=== PATIENT | male | born 1950 | race Caucasian/White ===

== ENCOUNTER → 2017-12-23 10:21 | Outpatient (CLI) | payer MEDICARE, SELFPAY ==
[2017-12-23 14:29] LABS: Basophils % 0.6 % (0.1-2.0); Eosinophils # 0.2 K/mm3 (0.0-0.4); Eosinophils % 2.5 % (0.1-12.0); Hematocrit 46.6 % (42.0-52.0); Hemoglobin 15.8 g/dL (14.1-18.0); Lymphocytes # 1.9 K/mm3 (0.7-4.5); Lymphocytes % 31.2 K/mm3 (10-50); Mean Corpuscular HGB Conc 33.9 g/dL (31.8-35.4); Mean Corpuscular Hemoglobin 29.3 pg (27.0-31.2); Mean Corpuscular Volume 86.5 fl (80-94); Mean Platelet Volume 8.1 fl (7.4-10.4); Monocytes # 0.6 K/mm3 (0.1-1.0); Monocytes % 8.9 % (1.7-9.3); Neutrophils # 3.5 K/mm3 (1.8-7.8); Neutrophils % 56.9 % (37.0-80.0); Platelet Count 188 K/mm3 (142-424); Red Blood Count 5.39 M/mm3 (4.60-6.20); Red Cell Distribution Width 13.1 % (11.5-17.5); White Blood Count 6.2 K/mm3 (4.8-10.8)
[2017-12-23 15:07] LABS: Alanine Aminotransferase 83 U/L (12-78); Albumin/Globulin Ratio 1.4 (1.1-1.8); Alkaline Phosphatase 81 U/L (46-116); Aspartate Amino Transferase 45 U/L (15-37); Bilirubin,Total 0.4 mg/dL (0.2-1.0); Blood Urea Nitrogen 15 mg/dL (7-18); Calcium 9.2 mg/dL (8.5-10.1); Carbon Dioxide 30 mmol/L (21.0-32.0); Chloride 104 mmol/L (98-107); Creatinine,Serum 1.03 mg/dL (0.70-1.30); Estimated Glomerular Filt Rate 72 ml/min (>60); GFR (African American) 88 ML/MIN (>60); Globulin 2.8 gm/dl (1.3-3.2); Glucose 160 mg/dL (74-106); Sodium 142 mmol/L (136-145); Thyroid Stimulating Hormone 3.13 uIU/ml (0.358-3.740); Total Protein,Serum 6.8 gm/dL (6.4-8.2)
[2017-12-24 20:14] LABS: Vitamin B12 856 pg/mL (232-1245)
== END ==
PROVIDERS: PCP Nurse Practitioner Family; Visit Provider Nurse Practitioner Family
DX: R53.83 Other fatigue (principal)
CPT/HCPCS: 36415; 80053; 82607; 82652; 84443; 85025

== ENCOUNTER → 2018-01-09 08:46 | Outpatient (CLI) | payer MEDICARE, SELFPAY ==
--- NOTE | 2018-01-09 08:49 | US_ITS ---
US abdomen limited: HISTORY: ITS.REASON: ELEVATED LIVER ENZYMES ORDERING PHYSICIAN: Tyson Storey MD PATIENT AGE: 67 years FINDINGS: Study is technically limited due to patient body habitus. PANCREAS: Poorly demonstrated LIVER: Increased echogenicity of the liver with poor through transmission of sound consistent with a liver. RIGHT KIDNEY: Unremarkable. Normal size and echogenicity. No hydronephrosis GALLBLADDER: No gallstones, gallbladder wall thickening, pericholecystic fluid, or biliary dilatation. IMPRESSION: Somewhat limited exam, no acute finding. No evidence of cholelithiasis. Fatty liver
== END ==
PROVIDERS: PCP Nurse Practitioner Family; Visit Provider Internal Medicine Adolescent Medicine
DX: R74.8 Abnormal levels of other serum enzymes (principal)
CPT/HCPCS: 76705

== ENCOUNTER → 2018-12-12 12:41 | Outpatient (CLI) | payer MEDICARE, SELFPAY | PROVIDERS: PCP Internal Medicine Adolescent Medicine; Visit Provider Internal Medicine Adolescent Medicine | DX: G47.33 Obstructive sleep apnea (adult) (pediatric) (principal); I10 Essential (primary) hypertension; R51 Headache | CPT/HCPCS: G0399 ==

== ENCOUNTER 2019-03-25 12:54 | Observation (INO) ==
--- NOTE | 2019-03-25 13:20 | Emergency Department Note ---
ED Disposition Clinical Impression: Vomiting, Hx of bladder cancer, Pyelonephritis of left kidney Disposition: Still a Patient Condition on Discharge: Fair - Critical Care Critical Care Time: No Attestation: On 03/25/19, the high probability of a clinically significant, sudden or life threatening deterioration of the following system(s) required my full and direct attention, intervention and personal management. The time I documented below is in addition to time spent performing reported procedures but includes the following listed in this critical care notation. Medical Decision Making - Alfredo Inquiry Pt receiving controlled substance: No Alfredo was queried for this patient: No Vital Signs: 03/25/19 13:25 03/25/19 14:55 Temperature 100.4 F H Temperature Source Oral Pulse Rate [Left Radial] 114 H 113 H Respiratory Rate 20 Blood Pressure [Right Arm] 128/47 L 126/98 H Blood Pressure Mean [Right Arm] 74 107 Blood Pressure Source [Right Arm] Automatic Cuff Blood Pressure Position [Right Arm] Sitting 02 Sat by Pulse Oximetry 95 92 L Oxygen Delivery Method Room Air - Lab Data Lab Results 03/25/19 13:16: WBC 15.3 H, RBC 5.15, Hgb 14.1, Hct 42.0, MCV 81.4, MCH 27.4, MCHC 33.7, RDW 13.6, Plt Count 210, MPV 7.1 L, Neut % (Auto) 78.6, Lymph % (Auto) 15.1, [place] % (Auto) 5.5, Eos % (Auto) 0.5, Baso % (Auto) 0.3, Neut # (Auto) 12.0 H, Lymph # (Auto) 2.3, [place] # (Auto) 0.8, Eos # (Auto) 0.1, Baso # (Auto) 0.0, Total Counted 100, Neutrophils % (Manual) 79 H, Band Neutrophils % 1.0, Lymphocytes % (Manual) 7 L, Atypical Lymphs % 3.0, Monocytes % (Manual) 10 H, Platelet Estimate Normal, RBC Morphology Normal 03/25/19 13:16: Sodium 138, Potassium 3.7, Chloride 100, Carbon Dioxide 28, Anion Gap 13.7, BUN 16, Creatinine 1.26, Estimated Creat Clear 87, Estimated GFR 57 L, Est GFR ( Amer) 69, Glucose 177 H, Calcium 9.4, Total Bilirubin 0.8, AST 11 L, ALT 27, Alkaline Phosphatase 102, Total Protein 7.2, Albumin 3.7, Globulin 3.5 H, Albumin/Globulin Ratio 1.1, Lipase 102 03/25/19 13:31: Urine Color Yellow, Urine Appearance Sl cloudy, Urine pH 7.0, Ur Specific [place] 1.020, Urine Protein 1+, Urine Glucose (UA) Trace, Urine Ketones Negative, Urine Blood 2+, Urine Nitrate Negative, Urine Bilirubin Negative, Urine Urobilinogen 1.0, Ur Leukocyte Esterase 1+ A, Urine RBC 5-10, Urine WBC 10-20, Ur Squamous Epith Cells Occasional, Urine Bacteria 2+ 03/25/19 14:30: Lactate 2.3 H Result diagrams: 03/25/19 13:16 03/25/19 13:16 Orders (Tests/Meds): ED MEDICATIONS Generic Name Dose Route Start Last Admin Trade Name Sergioq PRN Reason Stop Dose Admin Levofloxacin/Dextrose 750 mg in 150 mls @ 100 mls/hr 03/25/19 14:00 03/25/19 14:52 Levofloxacin 750mg/150ml Premix IV 04/08/19 13:59 100 mls/hr Q24H WILTON Administration Protocol Sodium Chloride 10 ml 03/25/19 13:16 Saline Flush 10ml Syringe IV 04/24/19 13:15 NEEDED PRN Maintain IV Site Discontinued Medications Generic Name Dose Route Start Last Admin Trade Name Dillon PRN Reason Stop Dose Admin Acetaminophen 1,000 mg 03/25/19 13:34 03/25/19 14:00 Tylenol 500mg Tablet PO 03/25/19 13:35 1,000 mg ONCE ONE Administration Famotidine 20 mg 03/25/19 13:16 03/25/19 13:39 Pepcid 20mg/2ml Vial IV 03/25/19 13:17 20 mg ONCE ONE Administration Ioversol 75 ml 03/25/19 14:37 03/25/19 14:38 Rad-Optiray 350 100ml Vial IV 03/25/19 14:38 75 ml ONCE ONE Administration Protocol Morphine Sulfate 2 mg 03/25/19 13:16 03/25/19 14:52 Morphine 2mg/Ml Syringe IV 03/25/19 13:17 2 mg ONCE ONE Administration Ondansetron HCl 4 mg 03/25/19 13:16 03/25/19 13:33 Zofran 4mg/2ml Vial IV 03/25/19 13:17 4 mg ONCE ONE Administration Sodium Chloride 8 ml 03/25/19 13:16 03/25/19 13:33 Saline Flush 10ml Syringe IV 03/25/19 13:17 8 ml ONCE ONE Administration Sodium Chloride 10 ml 03/25/19 14:37 03/25/19 14:38 Rad-Saline Flush 10ml Syringe IV 03/25/19 14:38 10 ml ONCE ONE Administration ORDERS Category Date Time Status Blood Culture Stat Micro 03/25/19 14:30 Received Urine Culture Stat Micro 03/25/19 13:31 Received - CT Data CT Scan: Abdomen, Pelvis Time Received: 15:[address] Reviewed: Yes: I discussed the CT results w/the radiologist Preliminary Findings: Abnormal Medical Decision Narrative: The patient received IV fluids anti-medics with improvement of his symptoms his white count was elevated urine was positive for leukocyte esterase and nitrates. I discussed with Dr. Storey with his tachycardia and elevated temperature he will be admitted. The patient was agreeable for admission. Abdominal Pain HPI - General Stated Complaint: Possible Kidney infection, cold and fever Time Seen by Provider: 03/25/19 13:16 - History of Present Illness HPI narrative: 68 years old white male with 10-year history of bladder cancer had multiple biopsies and BCG injections by dr. Castellon, has no history of nephrolithiasis. Yesterday, he developed intermittent left-sided dull aching pain rated 7/10 without radiation associated with dysuria lasting for 30 minutes x 2 episodes. Today he woke up at 730 had breakfast and 90 minutes later at 9:00 he developed the same pain that was became continuous until he arrived to the ED feeling nauseous and vomited once. Denies having fever chills body ache hematemesis co ffee-ground emesis melanotic stool or bleeding per rectum. He admits for having dysuria but denies having hematuria or flank pain. He denies having chest pain palpitation shortness of air. MD complaint: abdominal pain Onset (ago): hour(s) Consistency: constant Severity: moderate Severity scale (1-10): 7 Quality: aching, dull Radiation: none Relieving factors: nothing Exacerbating factors: nothing Associated symptoms: nausea, vomiting - Related Data Allergies Allergy/AdvReac Type Severity Reaction Status Date / Time No Known Allergies Allergy Verified 03/25/19 13:31 [facility] History - Hepatitis A Screen Attestation statement:: This patient has been screened for Hepatitis A risk factors. I have reviewed the patient's past medical history: Yes ROS Obtained: Yes All systems reviewed & no additional complaints Physical Exam - General General appearance: alert, in no apparent distress - Head Head exam: atraumatic, normocephalic, normal inspection - Eye Eye exam: Present: normal appearance, PERRL, EOMI. Absent: scleral icterus - ENT ENT exam: Present: normal exam, normal oropharynx, mucous membranes moist, TM's normal bilaterally, normal external ear exam - Neck Neck exam: Present: normal inspection, full ROM, trachea midline. Absent: tenderness, meningismus, lymphadenopathy - Chest Chest inspection: Present: normal inspection, symmetric chest wall rise. Absent: tenderness - Respiratory Respiratory exam: Present: normal lung sounds bilaterally. Absent: respiratory distress - Cardiovascular Cardiovascular exam: Present: regular rate, normal rhythm, normal heart sounds. Absent: JVD - Abdominal Exam Abdominal exam: Present: soft, tenderness, normal bowel sounds, other (Abdomen is soft with focal left loin pain tenderness, no rebound tenderness no cross tenderness no rigidity no pulsating masses equal bilateral femoral pulse.). Absent: distention, guarding, rebound, rigidity, Barnes's sign, tenderness at McBurney's Point - exam: Present: normal inspection, normal testicular lie. Absent: testicular tenderness, urethral discharge, scrotal swelling - Extremities Exam Extremities exam: Present: normal inspection, full ROM, normal capillary refill. Absent: calf tenderness - Back Exam Back exam: Present: normal inspection. Absent: tenderness - Neurological Exam Neurological exam: Present: alert, oriented X3, CN II-XII intact, motor sensory deficit, reflexes normal - Psychiatric Psychiatric exam: Present: normal affect, normal mood - Skin Skin exam: Present: warm, dry, intact, normal color - Lymphatic Lymphatic Findings: no adenopathy
[2019-03-25 13:25] LABS: Basophils % 0.3 % (0.1-2.0); Eosinophils # 0.1 K/mm3 (0.0-0.4); Eosinophils % 0.5 % (0.1-12.0); Hemoglobin 14.1 g/dL (14.1-18.0); Lymphocytes # 2.3 K/mm3 (0.7-4.5); Lymphocytes % 15.1 % (10-50); Mean Corpuscular HGB Conc 33.7 g/dL (31.8-35.4); Mean Corpuscular Volume 81.4 fl (80-94); Mean Platelet Volume 7.1 fl (7.4-10.4); Monocytes # 0.8 K/mm3 (0.1-1.0); Monocytes % 5.5 % (1.7-9.3); Neutrophils % 78.6 % (37.0-80.0); Platelet Count 210 K/mm3 (142-424); Red Blood Count 5.15 M/mm3 (4.60-6.20); Red Cell Distribution Width 13.6 % (11.5-17.5); White Blood Count 15.3 K/mm3 (4.8-10.8)
[2019-03-25 13:35] LABS: Microscopic, Urine URINE MICROSCOPIC (MICROSCOPIC)
[2019-03-25 13:36] LABS: Appearance,Urine SL CLOUDY (Clear); Bilirubin,Urine Negative (Negative); Blood, Urine 2+ (Negative); Color,Urine YELLOW (Yellow); Glucose,Urine (UA) TRACE (Negative); Ketones,Urine Negative (Negative); Leukocyte Esterase,Urine 1+ (Negative); Protein,Urine 1+ (Negative)
[2019-03-25 13:40] LABS: Albumin Level 3.7 gm/dL (3.4-5.0); Albumin/Globulin Ratio 1.1 (1.1-1.8); Anion Gap 13.7 mEq/L (5-15); Bilirubin,Total 0.8 mg/dL (0.2-1.0); Calcium 9.4 mg/dL (8.5-10.1); Globulin 3.5 gm/dl (1.3-3.2); Total Protein,Serum 7.2 gm/dL (6.4-8.2)
[2019-03-25 13:41] LABS: Lymphocytes % 7 % (10-50); Monocytes % 10 % (2-9); Neutrophils % 79 % (42-76); RBC Morphology Normal; Total Cells Counted 100
[2019-03-25 13:44] LABS: Bacteria,Urine 2+ /lpf; Squamous Epithelial Cell,Urine Occasional #/hpf (0-5)
--- NOTE | 2019-03-25 14:42 | Pharmacy Consult Notes ---
[facility] Pharmacy VTE Monitoring - Patient Demographics Admission date: 03/25/19 Report Date: 03/25/19 Time: 14:42 Allergies/Adverse Reactions: Patient Allergies No Known Allergies Allergy (Verified 03/25/19 13:31) Height: 1.73 m Weight: 106.141 kg Patient Problems: Current Active Problems (Updated 03/25/19 @ 13:22 by La Elliott MD) Vomiting (Acute) Hx of bladder cancer (Acute) - VTE Risk Labs: VTE Related Lab Results Hgb 14.1 g/dL (14.1-18.0) 03/25/19 13:16 Hct 42.0 % (42.0-52.0) 03/25/19 13:16 Plt Count 210 K/mm3 (142-424) 03/25/19 13:16 BUN 16 mg/dL (7-18) 03/25/19 13:16 Creatinine 1.26 mg/dL (0.70-1.30) 03/25/19 13:16 Estimated Creat Clear 87 mL/min (50-200) 03/25/19 13:16 - Prophylaxis VTE Prophylaxis Ordered?: Yes Types of VTE Prophylaxis: TEDS Knee High Location of Applied Device: Bilateral Lower Extremeties - VTE Diagnosis Confirmed Treatment or plan recommended: Continue Current Treatment
[2019-03-26 05:58] LABS: Basophils % 0.2 % (0.1-2.0); Eosinophils # 0.1 K/mm3 (0.0-0.4); Eosinophils % 0.7 % (0.1-12.0); Hematocrit 36.1 % (42.0-52.0); Lymphocytes # 2.1 K/mm3 (0.7-4.5); Lymphocytes % 14.5 % (10-50); Mean Corpuscular Volume 81.9 fl (80-94); Mean Platelet Volume 7.1 fl (7.4-10.4); Monocytes % 7.2 % (1.7-9.3); Neutrophils # 11.1 K/mm3 (1.8-7.8); Neutrophils % 77.3 % (37.0-80.0); Platelet Count 164 K/mm3 (142-424); Red Blood Count 4.41 M/mm3 (4.60-6.20); Red Cell Distribution Width 13.6 % (11.5-17.5); White Blood Count 14.3 K/mm3 (4.8-10.8)
[2019-03-26 06:01] LABS: Hemoglobin 11.9 g/dL (14.1-18.0)
[2019-03-26 06:07] LABS: Calcium 8.5 mg/dL (8.5-10.1)
--- NOTE | 2019-03-26 08:35 | H&P/Discharge Summary ---
General - General Admission date:: 03/25/19 Discharge date: 03/26/19 *Admission Date: 03/25/19 *Chief complaint: Hematuria/dysuria *History of present illness: 68-year-old white male with history of bladder cancer, currently in remission, treated by Dr. Castellon in [facility], who came to the emergency department with chief complaint of hematuria and some dysuria. Found to have a low-grade fever, temperature elevation and heart rate elevation was admitted to hospital for IV antibiotics and fluids. [facility] History I have reviewed the patient's past medical history: Yes Medical History: Reports:: Cancer (bladder cancer), Hyperlipidemia, Hypertension Denies:: Diabetes Mellitus Type 1, Diabetes Mellitus Type 2, MRSA *Have you ever received a pneumonia vaccine?: No *Have you received a flu vaccine this season?: Yes Other Surgeries: Yes: Cholecystectomy Amputation: No Fractures: No - *Social History Educational Level: Attended High School Smoking Status: Former smoker Alcohol Intake: never *Occupational Status:: retired Housing: house Household Members: family *Travel in the last 8 weeks: None - Psychiatric History Expresses thoughts of harming self/others: None Suicide Plan Description: No Plan Family Hx:: Hyperlipidemia, Hypertension Review of Systems - Review of Systems Review of systems:: pertinent systems reviewed and negative unless documented below - Constitutional Reports fatigue, Reports fever(s), Denies anorexia, Denies body ache(s) - Eyes Denies blind spots, Denies blurry vision - ENT Denies abnormal hearing, Denies bleeding gums, Denies dizziness - *Cardiovascular Denies chest pain, Denies chest pain at rest, Denies shortness of breath - *Respiratory Denies change in phlegm color, Denies chest congestion, Denies shortness of breath with activity - *Gastrointestinal Reports abdominal pain, Denies heartburn, Denies difficulty swallowing, Denies incontinent of stools, Denies heartburn - *Genitourinary Reports painful urination, Reports blood in urine, Reports frequent nighttime urination, Denies difficulty urinating, Denies erectile dysfunction - *Musculoskeletal Denies abnormal walking - Integumentary/Breasts Denies acne, Denies hair loss - *Neurologic Denies abnormal walking Exam Vital signs and Labs for Last 24 Hours: Temp Pulse Resp BP Pulse Ox 98.5 F 80 18 119/59 L 94 L 03/26/19 07:48 03/26/19 07:48 03/26/19 07:48 03/26/19 07:48 03/26/19 07:48 Laboratory Results - last 24 hr 03/25/19 13:16: WBC 15.3 H, RBC 5.15, Hgb 14.1, Hct 42.0, MCV 81.4, MCH 27.4, MCHC 33.7, RDW 13.6, Plt Count 210, MPV 7.1 L, Neut % (Auto) 78.6, Lymph % (Auto) 15.1, [place] % (Auto) 5.5, Eos % (Auto) 0.5, Baso % (Auto) 0.3, Neut # (Auto) 12.0 H, Lymph # (Auto) 2.3, [place] # (Auto) 0.8, Eos # (Auto) 0.1, Baso # (Auto) 0.0, Total Counted 100, Neutrophils % (Manual) 79 H, Band Neutrophils % 1.0, Lymphocytes % (Manual) 7 L, Atypical Lymphs % 3.0, Monocytes % (Manual) 10 H, Platelet Estimate Normal, RBC Morphology Normal 03/25/19 13:16: Sodium 138, Potassium 3.7, Chloride 100, Carbon Dioxide 28, Anion Gap 13.7, BUN 16, Creatinine 1.26, Estimated Creat Clear 87, Estimated GFR 57 L, Est GFR ( Amer) 69, Glucose 177 H, Calcium 9.4, Total Bilirubin 0.8, AST 11 L, ALT 27, Alkaline Phosphatase 102, Total Protein 7.2, Albumin 3.7, Globulin 3.5 H, Albumin/Globulin Ratio 1.1, Lipase 102 03/25/19 13:31: Urine Color Yellow, Urine Appearance Sl cloudy, Urine pH 7.0, Ur Specific [place] 1.020, Urine Protein 1+, Urine Glucose (UA) Trace, Urine Ketones Negative, Urine Blood 2+, Urine Nitrate Negative, Urine Bilirubin Negative, Urine Urobilinogen 1.0, Ur Leukocyte Esterase 1+ A, Urine RBC 5-10, Urine WBC 10-20, Ur Squamous Epith Cells Occasional, Urine Bacteria 2+ 03/25/19 14:30: Lactate 2.3 H 03/25/19 18:50: Lactate 1.7 03/26/19 05:35: WBC 14.3 H, RBC 4.41 L, Hgb 11.9 L D, Hct 36.1 L, MCV 81.9, MCH 27.0, MCHC 33.0, RDW 13.6, Plt Count 164, MPV 7.1 L, Neut % (Auto) 77.3, Lymph % (Auto) 14.5, [place] % (Auto) 7.2, Eos % (Auto) 0.7, Baso % (Auto) 0.2, Neut # (Auto) 11.1 H, Lymph # (Auto) 2.1, [place] # (Auto) 1.0, Eos # (Auto) 0.1, Baso # (Auto) 0.0 03/26/19 05:35: Sodium 142, Potassium 4.0, Chloride 104, Carbon Dioxide 30, Anion Gap 12.0, BUN 13, Creatinine 1.16, Estimated Creat Clear 91, Estimated GFR 63, Est GFR ( Amer) 76, Glucose 136 H D, Calcium 8.5 I & O for Last 24 hours: Intake & Output 03/23/19 03/24/19 03/25/19 03/26/19 11:59 11:59 11:59 11:59 Intake Total 2119 Balance 2119 Weight 227 lb 5 oz Narrative: Patient after overnight treatment is alert, pleasant. Feels much better. Abdomen soft and nontender. Lungs are clear, heart rate regular. No neurologic deficits. No perfusion deficits. Hospital Course Hospital Course: Patient was admitted overnight. This morning he feels much better, wishes to be discharged home. We will discharge home on p.o. levofloxacin. I will see him in short-term follow-up on with repeat urinalysis. If still with hematuria we will schedule reimaging and urology evaluation. Results Labs on day of discharge: Labs from last 24 hours 03/26/19 03/26/19 03/25/19 05:35 05:35 18:50 WBC 14.3 H RBC 4.41 L Hgb 11.9 L D Hct 36.1 L MCV 81.9 MCH 27.0 MCHC 33.0 RDW 13.6 Plt Count 164 MPV 7.1 L Neut % (Auto) 77.3 Lymph % (Auto) 14.5 [place] % (Auto) 7.2 Eos % (Auto) 0.7 Baso % (Auto) 0.2 Neut # (Auto) 11.1 H Lymph # (Auto) 2.1 [place] # (Auto) 1.0 Eos # (Auto) 0.1 Baso # (Auto) 0.0 Total Counted Neutrophils % (Manual) Band Neutrophils % Lymphocytes % (Manual) Atypical Lymphs % Monocytes % (Manual) Platelet Estimate RBC Morphology Sodium 142 Potassium 4.0 Chloride 104 Carbon Dioxide 30 Anion Gap 12.0 BUN 13 Creatinine 1.16 Estimated Creat Clear 91 Estimated GFR 63 Est GFR ( Amer) 76 Glucose 136 H D Lactate 1.7 Calcium 8.5 Total Bilirubin AST ALT Alkaline Phosphatase Total Protein Albumin Globulin Albumin/Globulin Ratio Lipase Urine Color Urine Appearance Urine pH Ur Specific [place] Urine Protein Urine Glucose (UA) Urine Ketones Urine Blood Urine Nitrate Urine Bilirubin Urine Urobilinogen Ur Leukocyte Esterase Urine RBC Urine WBC Ur Squamous Epith Cells Urine Bacteria 03/25/19 03/25/19 03/25/19 14:30 13:31 13:16 WBC RBC Hgb Hct MCV MCH MCHC RDW Plt Count MPV Neut % (Auto) Lymph % (Auto) [place] % (Auto) Eos % (Auto) Baso % (Auto) Neut # (Auto) Lymph # (Auto) [place] # (Auto) Eos # (Auto) Baso # (Auto) Total Counted Neutrophils % (Manual) Band Neutrophils % Lymphocytes % (Manual) Atypical Lymphs % Monocytes % (Manual) Platelet Estimate RBC Morphology Sodium 138 Potassium 3.7 Chloride 100 Carbon Dioxide 28 Anion Gap 13.7 BUN 16 Creatinine 1.26 Estimated Creat Clear 87 Estimated GFR 57 L Est GFR ( Amer) 69 Glucose 177 H Lactate 2.3 H Calcium 9.4 Total Bilirubin 0.8 AST 11 L ALT 27 Alkaline Phosphatase 102 Total Protein 7.2 Albumin 3.7 Globulin 3.5 H Albumin/Globulin Ratio 1.1 Lipase 102 Urine Color Yellow Urine Appearance Sl cloudy Urine pH 7.0 Ur Specific [place] 1.020 Urine Protein 1+ Urine Glucose (UA) Trace Urine Ketones Negative Urine Blood 2+ Urine Nitrate Negative Urine Bilirubin Negative Urine Urobilinogen 1.0 Ur Leukocyte Esterase 1+ A Urine RBC 5-10 Urine WBC 10-20 Ur Squamous Epith Cells Occasional Urine Bacteria 2+ 03/25/19 13:16 WBC 15.3 H RBC 5.15 Hgb 14.1 Hct 42.0 MCV 81.4 MCH 27.4 MCHC 33.7 RDW 13.6 Plt Count 210 MPV 7.1 L Neut % (Auto) 78.6 Lymph % (Auto) 15.1 [place] % (Auto) 5.5 Eos % (Auto) 0.5 Baso % (Auto) 0.3 Neut # (Auto) 12.0 H Lymph # (Auto) 2.3 [place] # (Auto) 0.8 Eos # (Auto) 0.1 Baso # (Auto) 0.0 Total Counted 100 Neutrophils % (Manual) 79 H Band Neutrophils % 1.0 Lymphocytes % (Manual) 7 L Atypical Lymphs % 3.0 Monocytes % (Manual) 10 H Platelet Estimate Normal RBC Morphology Normal Sodium Potassium Chloride Carbon Dioxide Anion Gap BUN Creatinine Estimated Creat Clear Estimated GFR Est GFR ( Amer) Glucose Lactate Calcium Total Bilirubin AST ALT Alkaline Phosphatase Total Protein Albumin Globulin Albumin/Globulin Ratio Lipase Urine Color Urine Appearance Urine pH Ur Specific [place] Urine Protein Urine Glucose (UA) Urine Ketones Urine Blood Urine Nitrate Urine Bilirubin Urine Urobilinogen Ur Leukocyte Esterase Urine RBC Urine WBC Ur Squamous Epith Cells Urine Bacteria DS: Diagnosis - Discharge Diagnosis (1) Hx of bladder cancer Status: Chronic (2) Pyelonephritis of left kidney Status: Acute (3) Vomiting Status: Resolved Discharge Plan - Patient Discharge Instructions ACTIVITY: Continue current activity DIET: continue same diet Patient Instructions: DI for Acute Abdomen - Follow up Plan Follow up with: Tyson Storey MD [Primary Care Provider] - 03/29/19 9:15 am Disposition: Home, Self-Retirement Medications: Home Medications Medication Instructions Recorded Confirmed Type Atorvastatin Calcium [Atorvastatin 40 mg PO DAILY 03/25/19 03/25/19 History 40mg Tab] Levocetirizine Dihydrochloride 5 mg PO DAILY 03/25/19 03/25/19 History Losartan/Hydrochlorothiazide 1 tab PO DAILY 03/25/19 03/25/19 History [Losartan-Hctz 50-12.5 mg Tab] Meloxicam 15 mg PO DAILY 03/25/19 03/25/19 History Omeprazole 20 mg PO DAILY 03/25/19 03/25/19 History levoFLOXacin [Levaquin 500mg 500 mg PO DAILY #7 tab 03/26/19 Rx tab] Prescriptions/Medication Reconciliation: New levoFLOXacin [Levaquin 500mg tab] 500 mg PO DAILY #7 tab Continued Omeprazole 20 mg PO DAILY Meloxicam 15 mg PO DAILY Losartan/Hydrochlorothiazide [Losartan-Hctz 50-12.5 mg Tab] 1 tab PO DAILY Levocetirizine Dihydrochloride 5 mg PO DAILY Atorvastatin Calcium [Atorvastatin 40mg Tab] 40 mg PO DAILY
== END 2019-03-26 10:25 | disposition home or self-care (01) ==
LOC: 2ND 12:54 → ER 12:54 → 2ND 15:54
PROVIDERS: ADMIT Internal Medicine Adolescent Medicine; ATTEND Internal Medicine Adolescent Medicine
DX: Z82.49 Family history of ischemic heart disease and other diseases of the circulatory system; Z90.49 Acquired absence of other specified parts of digestive tract; N12 Tubulo-interstitial nephritis, not specified as acute or chronic; Z79.899 Other long term (current) drug therapy; Z85.51 Personal history of malignant neoplasm of bladder; Z87.891 Personal history of nicotine dependence
CPT/HCPCS: 36415; 74177; 80048; 80053; 81001; 83605; 83690; 85007; 85025; 87040; 87086; 87088; 87186; 90732; 96365; 96367; 96375; 99284; G0378; J1956; J2405; Q9967